=== PATIENT | female | born 1970 | race Caucasian/White ===

== ENCOUNTER 2025-04-05 19:15 | Emergency (ER) | payer BC, SELFPAY ==
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
--- OUTSIDE RECORDS SUMMARY | 2025-04-05 19:18 | XMS_ITS | Encounter Summary ---
Author Organization [facility] Address [address] [place] [address] Care Team Providers Care Support Director Name Role Phone Bishop RobleroATere-CTere Primary Care Provider Reason for Referral * Outpatient (Routine) - Authorized Specialty Diagnoses / Procedures Referred By Contberkley t Referred To Contact Diagnoses Screening Mammogram Breast Cancer Procedures BI Breast Screening Bilateral with Tomosynthesis Bishop Roblero P.ATere-CTere [address] [place] [address] Phone: tel: fax: [facility] Region Referral ID Status Reason Start Date Expiration Date V isits Requested Visits Authorized [id number] Authorized 03/12/2025 06/12/2026 1 1 Encounter Details Date Type Department Care Team (Late st Contact Info) Description 03/12/2025 Orders Only [facility] Bishop Roblero P.ATere-CTere [address] [place] [address] Screening Mammogram Breast Cancer Social History Tobacco Use Types Packs/Day Years Used Date Smoking Tobacco: Never Passive Smoke Exposure: Never Smokeless Tobacco: Never Alcohol Use Standard Drinks/Week Comments Not Currently 2 (1 standard drink = 0.6 oz pure alcohol) Used to drink socially but I no longer drink alcohol [facility] Utilities Answer Date Recorded In the past 12 months has th e [employer], gas, oil, or water [employer] threatened to shut off services in your [...] your living situation today? I have a [facility] place to live 07/10/2024 Education Answer Date Recorded What is the highest level of school you have completed or the highest degree you have received? 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 Gender Identity Female 03/09/2018 8:32 AM CDT Sexual Orientation Straight 03/09/2018 8: 32 AM CDT documented as of this encounter Plan of Treatment Upcoming Encounters Date Type Department Care Team (Late st Contact Info) Description 05/28/2025 7:30 AM CDT Appointment Department of Laboratory Medicine in [place], [place] [address] [place] [address] Bishop Roblero P.A.-CTere [address] [place] [address] 05/31/2025 7:30 AM CDT Office Visit Department of Family Medicine, [facility], in [place], [place] [address] [place] [address] Bishop Roblero P.A.-CTere [address] [place] [address] 06/06/2025 4:00 PM CDT Appointment Department of Radiology in [place], [place] [address] [place] [address] Bishop Roblero P.A.-CTere [address] [place] [address] Scheduled Orders Name Type Priority Associated Diagnoses Order Schedule BI Breast Screening Bilateral with Tomosynthesis Imaging RAD - Routine (most inpatients and all outpatients) Screening Mammogram Breast Cancer Expected: 03/26/2025, Expires: 08/29/2025 documented as of this encounter Visit Diagnoses Diagnosis Screening Mammogram Breast Cancer documented in this encounter Additional Health Concerns Assessment Noted Time PHQ-9 Depression Total Score: 2 11/26/19 25 5:44 PM CDT documented as of this encounter Care Teams Support Director Relationship Specialty Start Date End Date Bishop Roblero P.A.-CTere [address] [place] [phone] PCP - General Family Medicine 04/22/20 documented as of this encounter
--- OUTSIDE RECORDS SUMMARY | 2025-04-05 19:18 | XMS_ITS | Clinical Summary ---
Author Organization [facility] Address [address] [place] [id number] Care Team Providers Care Radiology Manager Name Role Phone Bishop Roblero Primary Care Provider Allergies Active Allergy Reactions Criticality Noted Date Comments Erythromycin Rash 10/19/2014 Penicillins Rash 10/19/2014 Quinolones Hives 10/19/2014 Sulfa (Sulfonamide Antibiotics) Rash 10/19/2014 Sulfasalazine Hives 06/23/2005 PN: LW Reaction: HIVES Medications montelukast (SINGULAIR) 10 mg tablet Take 1 tablet by mouth at bedtime. 0 10/19/19 15 Active LORazepam (ATIVAN) 0.5 mg tab Take 0.5 mg by mouth 3 times daily if needed for Other (Specify) (tourettes). 0 10/19/19 15 Active albuterol HFA (PRO-AIR,VENTOLIN ,PROVENTIL) 90 mcg/actuation inhalerIndication s:Asthma, mild intermittent, uncomplicated Inhale 1-2 Puffs by mouth every 4 hours if needed. 1 Inhaler 4 06/24/20 15 Active fluticasone-salme terol (ADVAIR DISKUS) 250-50 mcg/Dose diskus inhalerIndication s:Asthma, mild intermittent, uncomplicated Inhale 1 Puff by mouth every 12 hours. 1 Inhaler 12 06/24/20 15 Active ibuprofen (ADVIL; MOTRIN) 200 mg tabletIndications :Malpositioned intrauterine device (IUD), initial encounter Take 1-3 tablets by mouth every 6 hours if needed for Pain. 50 tablet 10/08/19 17 Active triamcinolone (ARISTOCORT; KENALOG) 0.1 % creamIndications: Dermatitis Apply topically to affected area(s) 3 times daily. 60 g 05/09/20 17 Active albuterol (PROVENTIL) 0.083 % neb solutionIndicatio ns:Exacerbation of asthma, unspecified asthma severity, unspecified whether persistent (HC) Inhale 3 mL via a nebulizer every 4 hours if needed. 1 box 1 07/25/20 17 Active levonorgestrel intrauterine device (MIRENA) 20 mcg/24 hr (5 years) IUD Inject 1 Device intrauterine one time. Active metroNIDAZOLE 0.75 % cream Apply 1 Applicator topically to affected area(s) 2 times daily. Active omeprazole (PRILOSEC) 20 mg Delayed-Release capsule Take 20 mg by mouth once daily before a meal. Active brimonidine 0.33 % topical gel Apply topically to affected area(s). 05/14/20 21 Active FLUoxetine (PROZAC) 20 mg capsule Take 20 mg by mouth once daily. 05/14/20 21 Active zolpidem (AMBIEN) 10 mg tablet Take 10 mg by mouth at bedtime if needed. 05/14/20 21 Active ivermectin (Soolantra) 1 % topical cream Apply topically to affected area(s) once daily. 08/29/20 21 Active albuterol HFA (PRO-AIR; VENTOLIN; PROVENTIL) 90 mcg/actuation inhaler Inhale 2 Puffs by mouth every 4 hours if needed. 05/14/20 21 Active inhalational spacing device As directed 1 Each. 05/21/20 20 Active cyclobenzaprine (FLEXERIL) 10 mg tablet Take 10 mg by mouth at bedtime if needed for Muscle Spasm. Active oxyCODONE-acetami nophen (PERCOCET) 5-325 mg per tabletIndications :S/P hysterectomy Take 1 Tablet by mouth every 6 hours if needed for Pain. Max acetaminophen dose: 4000mg in 24 hrs. 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 Maximum of 3200 mg in 24 hours. 40 Tablet 2 11:48 AM MANGLE ROLL OPERATOR 11/13/19 22 Active ondansetron (ZOFRAN) 4 mg tabletIndications :S/P hysterectomy Take 2 Tablets (8 mg) by mouth 2 times daily. 10 Tablet 2 11:48 AM MANGLE ROLL OPERATOR 11/13/19 22 Active amitriptyline (ELAVIL) 50 mg tablet Take 50 mg by mouth at bedtime. 11/08/19 24 Active benzonatate (TESSALON) 100 mg capsule Take 100 mg by mouth 3 times daily if needed. 06/27/20 24 Active benzonatate (TESSALON) 200 mg capsule Take 200 mg by mouth 3 times daily if needed. 05/30/20 23 Active fluticasone furoate-vilantero L (BREO ELLIPTA) 200-25 mcg/dose inhalation anesthesiologist assistant certified Inhale 1 Puff by mouth. 05/30/20 24 025 Active methylPREDNISolon e (MEDROL DOSEPAK) 4 mg tablet Take 4 mg by mouth four times daily with meals and at bedtime. 06/27/20 24 Active Active Problems Problem Noted Date Diagnosed Date IUD (intrauterine device) in place 04/04/2017 Overview (04/04/2017): Mirena 09/2016 Persistent disorder of initiating or maintaining sleep 01/20/2010 Resolved Problems Problem Noted Date Diagnosed Date Resolved Date Foreign body in uterus, any part 10/04/2016 04/04/2017 Malpositioned intrauterine device (IUD) 10/04/2016 04/04/2017 Immunizations Immunization Administration Dates Next Due HepA-HepB (Twinrix) 10/27/2018 Influenza A (H1N1), Inactivated 09/12/2009,08/20 Influenza A (H1N1), Inactiva ant (Age >=3 Years) 09/12/2009,08/20/2009 Influenza Virus, Unspecified 06/19/2015, 06/27/2014,05/28/2013,2009,05/28/2009,07/03/2008,06/15/2007,1 ,07/05/2005 Influenza, IIV4 06/21/2018, 3,06/22/2010,2008,07/03/2008,06/15/2007,07/08/2006,1 Influenza, IIV4 (=>6mos) MDV 06/19/2015 Influenza, IIV4 (Age 6-35 Mos) 05/28/2013 Influenza, Whole Virus 06/22/2017 Romanian Encephalitis 10/27/2018 Rabavert 11/03/2018,10/27/2018 Td, Preservative Free (age > = 7 Years) 03/09/2018 Tdap 01/11/2007 Typhoid (injectable) 10/27/2018 Social History Tobacco Use Types Packs/Day Years Used Date Smoking Tobacco: Never Smokeless Tobacco: Never Tobacco Cessation:Counseling Given: Yes Alcohol Use Standard Drinks/Week Comments Yes 0 (1 standard drink = 0.6 oz pur e alcohol) occ drink PHQ-2 Answer Date Recorded PHQ-2 Score 0 11/14/2018 Comments No Sex and Gender Information Value Date Recorded Sex Assigned at Not on file Legal Sex Female 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 Gender Identity Not on file Sexual Orientation Not on file Obstetrics History Para Term AB IAB SAB Ectopic Multiple Livin g Live Births 1 1 0 1 0 0 0 0 1 3 Date Outcome GA Total Labor Labor/2nd/3rd Weight Sex Type Anes PTL Chuyita A1 A5 Name Clin 2000 34w 0d C-Sec tion Comments:Triplet gesta tion Last Filed Vital Signs Vital Sign Reading Time Taken Comments Blood Pressure 139/80 06/30/2024 9:45 AM CDT Pulse 108 06/30/2024 9:45 AM CDT Temperature 36.9 C (98.5 F) 06/30/2024 9:45 AM CDT Respiratory Rate 24 06/30/2024 9:45 AM CDT Oxygen Saturation 94% 06/30/2024 9:45 AM CDT Inhaled Oxygen Concentration - - Weight 85.5 kg (188 lb 9.6 oz) 06/30/2024 9:45 A M CDT Height 172.1 cm (5' 7.75) 11/12/2021 8:31 AM CS T Body Mass Index 28.89 11/12/2021 8:31 AM MANGLE ROLL OPERATOR Plan of Treatment Health Maintenance Due Date Last Done Comments HIV for age 15-65 1986 Hepatitis C screening for ag e 18-79 1989 Pap test for age 21-65 01/26/1992 Lipids for age 45-75 01/26/2016 Mammogram for age 45-75 01/26/2016 Hepatitis B series for 19+ ( 2 of 3 - Hep B Twinrix 3-dose series) 11/24/2018 10/27/2018 Depression screening for age 12+ 09/21/2019 09/21/19 19, 04/04/2017 BMI (ht and wt on same day) for age 18+ 01/20/2020 01/19/2019, 11/27/2018, 10/27/2018, Additional history exists Pneumococcal series for age 50+ (1 of 1 - PCV) 2021 Zoster (shingles) series for age 50+ (1 of 2) 2021 Influenza Vaccine (#1) 2025 8, 06/22/2017, 06/19/2015, Additional history exists Tetanus booster 03/09/2028 03/09/2018, 01/11/2007 Colonoscopy through age 75 05/29/2031 05/29/2021 COVID-19 vaccine series Completed 05/30/20 24, 06/10/2023, 05/21/2022, Additional history exists Medical Devices Implanted Type Area Forestry Patrolman Device Identifier Shelf Expiration Date Model / Serial / Lot [id number] - [id number] Implanted:Qty : 1 on 10/08/2016 by Blake Farah MD at [facility] N/A: Vagina Nexgence 06/11/2019 [id number] / / [id number] Description:Doctor gee Espitia rought from clinic Procedures Procedure Name Priority Date/Time Associated Diagnosis Comments COLONOSCOPY 05/29/2021 10:39 AM CDT from Last 3 Months or Most Recently Relevant to Health Maintenance Results * COLONOSCOPY (05/29/2021 10:39 AM CDT) 05/29/2021 10:3 9 AM CDT Narrative Transcriptions FromJose smith MD - 05/29/2021 11:22 AM CDT Patient Name: Sarah Tran Procedure Date: 05/29/2021 Gender: Female Date of : 1970 Admit Type: Ambulatory Procedure: Colonoscopy Proceduralist: [facility], Leigh Ann Watts MD (Rug Inspector) Referring MD: Bishop Roblero Indications/Pre-Op Diagnosis: Screening for colorectal malignantneoplasm Medications: Propofol per Anesthesia Procedure Description: The procedure, indications, potential complications, (bleeding, perforation, infection, adverse medication reaction, missed lesionsor polyps) and alternatives available were explained to the patient, who appeared to understand and indicated this. Opportunity for questionswas provided and informed consent obtained. The colonoscope was passed through the anus and advanced to thececum, identified by appendiceal orifice and ileocecal valve. Thecolonoscopy was performed with ease. The patient tolerated the procedure well.The quality of the bowel preparation was evaluated using the BBPS ([place] Bowel Preparation Scale) with scores of: Right Colon = 3, Transverse Colon = 3 and Left Colon = 3 (entire mucosa seen well with noresidual staining, small fragments of stool or opaque liquid). The total BBPS score equals 9. Complications: No immediate complications. Estimated Blood Loss & Specimen: Estimated blood loss: none. Specimen collected: None Findings: The perianal and digital rectal examinations were normal. Pertinent negatives include normal sphincter tone. The terminal ileum appeared normal. The colon (entire examined portion) appeared normal. The exam was otherwise without abnormality on direct and retroflexion views. Impressions/Post-Op Diagnosis: - The examined portion of the ileum was normal. - The entire examined colon is normal. - The examination was otherwise normal on direct and retroflexionviews. - No specimens collected. Recommendation: - Repeat colonoscopy in 10 years for screening purposes. Moderate Sedation: Deep sedation per anesthesia. Miladmaik Gonzalez, 05/29/2021 11:22:07 AM This report has been signed electronically. Note Initiated On: 05/29/2021 10:39 AM Jose Gonzalez MD PROCEDURE ORD Final Resu lt from Last 3 Months or Most Recently Relevant to Health Maintenance Insurance [facility] Advance Directives Documents on File Type Date Recorded Patient [employer] Teacher Expl anation Healthcare Directive 06/06/2015 015 * Full Code (Latest Code Status on File) Date Activated Date Inactivated Comments 11/12/2021 8:04 AM 11/12/2021 8:11 PM Question Answer Comments Code Status Discussion: Reviewed Preferences * Full Code Date Activated Date Inactivated Comments 05/29/2021 7:29 AM 05/29/2021 3:38 PM Question Answer Comments Code Status Discussion: Not Discussed * Full Code Date Activated Date Inactivated Comments 04/17/2018 1:11 PM 04/17/2018 5:12 PM * Full Code Date Activated Date Inactivated Comments 10/08/2016 6:12 AM 10/08/2016 12:18 PM Question Answer Comments Code Status Discussion: Discussed Care Teams Radiology Manager Relationship Specialty Start Date End Date Bishop Roblero PA [address] [place] [phone] PCP - General Physician Settlement Technician 06/30/24
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
[2025-04-05 19:25] VITALS: BP 135/90; PULSE 81; RESP 16; TEMP 36.6; O2SAT 98; BMI 26.6
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
== END 2025-04-05 22:05 | disposition home or self-care (01) ==
PROVIDERS: Emergency Provider Emergency Medicine; PCP Physician Assistant
DX: T24.231A Burn of second degree of right lower leg, initial encounter (principal); X03.0XXA Exposure to flames in controlled fire, not in building or structure, initial encounter
CPT/HCPCS: 99282; 99283